=== PATIENT | male | born 1970 | race Caucasian/White ===

== ENCOUNTER 2021-03-26 11:09 | Emergency (ER) | payer BC ==
[~2021-03-26] VITALS: Ht 175.2 cm; Wt 90.7 kg
[2021-03-26] MEDS ORDERED: EPIPEN 2-P0.3 MG/0.3 IJ (11:30)
[2021-03-26] MEDS ORDERED: PEPCID20 MG PO (11:30)
[2021-03-26] MEDS ORDERED: CLARITIN10 MG PO (11:30)
[2021-03-26] MEDS ORDERED: MEDROL DOSEPAK4 MG PO (11:30)
[2021-03-26 11:50] LABS: BASO # 0.1 10*3/uL (0.0-0.1); BASO % 0.7 % (0.0-1.0); EOS # 0.1 10*3/uL (0.0-0.4); HEMATOCRIT 53.6 % (42.0-52.0); LYMPH # 2.5 10*3/uL (1.3-4.4); LYMPH % 35.3 % (27.0-41.0); MEAN CELL VOLUME 85.1 fl (80.0-94.0); MEAN CORPUSCULAR HGB CONC 34.1 g/dl (33.0-37.0); MEAN PLATELET VOLUME 9.1 fl (9.6-12.3); MONO # 0.6 10*3/uL (0.1-1.0); MONO % 8.9 % (3.0-9.0); NEUT # 3.8 10*3/uL (2.3-7.9); NEUT % 52.7 % (47.0-73.0); PLATELET COUNT AUTOMATED 318 10*3/uL (130-400); RED CELL DISTRI WIDTH 12.8 % (0-14.5); WHITE BLOOD COUNT 7.1 10*3/uL (4.8-10.8)
[2021-03-26 12:40] LABS: BUN 13 mg/dl (7-24); CHLORIDE 106 mmol/L (98-107); CREATININE 1.08 mg/dL (0.70-1.30); SODIUM 138 mmol/L (136-145)
[2021-03-26 12:42] LABS: POTASSIUM 4.2 mmol/L (3.5-5.1)
[2021-03-26 15:23] LABS: HEMATOCRIT 49.7 % (42.0-52.0); MEAN CELL VOLUME 86.3 fl (80.0-94.0); MEAN CORPUSCULAR HGB 29.2 pg (27.0-31.0); MEAN CORPUSCULAR HGB CONC 33.8 g/dl (33.0-37.0); MEAN PLATELET VOLUME 9.1 fl (9.6-12.3); PLATELET COUNT AUTOMATED 225 10*3/uL (130-400); RED BLOOD COUNT 5.76 10*6/uL (4.50-5.90); RED CELL DISTRI WIDTH 13.2 % (0-14.5); WHITE BLOOD COUNT 17.6 10*3/uL (4.8-10.8)
[2021-03-26 15:39] LABS: TOTAL CELLS COUNTED 100 #CELLS
[2021-03-26 15:40] LABS: PLATELET SUFFICIENCY NORMAL (NORMAL)
== END 2021-03-26 16:08 | disposition home or self-care (01) ==
LOC: ED 11:09
PROVIDERS: Emergency Medicine
DX: T63.441A Toxic effect of venom of bees, accidental (unintentional), initial encounter (principal); E11.65 Type 2 diabetes mellitus with hyperglycemia; D75.1 Secondary polycythemia; E78.5 Hyperlipidemia, unspecified; Y92.89 Other specified places as the place of occurrence of the external cause